=== PATIENT | female | born 1980 | race African-American/Black ===

== ENCOUNTER 2016-07-11 08:34 | Outpatient (CLI) | payer OTHER ==
--- NOTE | 2016-07-11 13:50 | Ultrasound Report ---
THYROID ULTRASOUND:07/11/16 08:34:00 CLINICAL: Goiter. FINDINGS: High-resolution ultrasound demonstrated an enlarged thyroid. The right lobe measures 4.7 x 2.0 x 2.3cm. The left lobe measures 5.0 x 1.6 x 2.1 cm. The isthmus measures 5.0 m AP thickness. Bilateral complex nodules. A single right lower pole nodule measures 9 x 8 x 5 mm. A left upper pole nodule measures 8 x 5 x 6 mm. A complex nodule in the midportion of the left lobe measures 8 x 7 x 5 mm and a left lower pole nodule measures 9 x 4 x 7 mm. All of the nodules have similar morphology which is typical of benign hyperplastic nodules. IMPRESSION: Multinodular thyroid with a few bilateral benign thyroid nodules.
== END 2016-07-11 08:35 | disposition home or self-care (01) ==
LOC: SPVWC 08:34
PROVIDERS: ATTEND Family Medicine
DX: E04.9 Nontoxic goiter, unspecified (principal)
CPT/HCPCS: 76536

== ENCOUNTER 2018-08-30 09:59 | Outpatient (CLI) | payer OTHER ==
--- NOTE | 2018-08-30 12:41 | Ultrasound Report ---
THYROID ULTRASOUND HISTORY: GOITER COMPARISON: 07/11/2016 TECHNIQUE: Routine sonographic images were obtained of the thyroid. FINDINGS: Right thyroid lobe: A complex nodule of the medial lower pole measures 6 x 3 x 9 mm and is unchanged compared to the previous exam. The right thyroid lobe measures 4.6 x 1.9 x 2.0 cm. Isthmus: No significant abnormality. The isthmus measures 7.5 mm. Left thyroid lobe: Several complex nodules of the upper and lower pole which are not significantly c hanged compared to the previous exam. The largest is in the lower pole and measures 11 x 4 x 7 mm com pared to 9 x 4 x 7 mm on the last exam. The left thyroid lobe measures 4.5 x 1.6 x 2.0 cm. IMPRESSION: Bilateral benign nodules without significant change. Signer Name: Reese Perkins MD Signed: 08/30/2018 12:37 PM Workstation Name: [id number]
== END 2018-08-30 10:00 | disposition home or self-care (01) ==
LOC: SPVWC 09:59
PROVIDERS: ATTEND Family Medicine
DX: E04.2 Nontoxic multinodular goiter (principal)
CPT/HCPCS: 76536